=== PATIENT | female | born 1980 | race Two or more races ===

== ENCOUNTER 2017-06-11 12:37 | Day surgery (SDC) | payer OTHER ==
[~2017-06-11] VITALS: Ht 172.7 cm; Wt 65.8 kg
[2017-06-11] VITALS (9 sets, daily range): BP systolic 102–123; BP diastolic 56–86
[~2017-06-11 12:37] MED LIST: LR 1000ml 1,000 ML IVLG ONE
[2017-06-11] MEDS ORDERED: SYNTHROID50 MCG ORAL (13:01)
[2017-06-11] MEDS ORDERED: WP THYROID81.25 MG PO (13:03)
[2017-06-11] MEDS ORDERED: LR 1000ml 1,000 ML IVLG SCH (13:04)
--- NOTE | 2017-06-11 13:04 | Anethesia Preoperative Eval ---
Anesthesia Pre-op PMH/ROS General Date of Evaluation: Jun 11, 2017 Anesthesiologist: Nathan ASA Score: ASA 2 Mallampati Score Class I : Soft palate, uvula, fauces, pillars visible Class II: Soft palate, uvula, fauces visible Class III: Soft palate, base of uvula visible Class IV: Only hard plate visible Mallampati Classification: Class I Surgeon: Naila Diagnosis: Polyps Surgical Procedure: Colonoscopy Anesthesia History: none Family History: no anesthesia problems Allergies: Coded Allergies: HYDROMORPHONE (Verified Adverse Reaction, Severe, 06/11/17) SEVERE VOMITING Uncoded Allergies: cephalosporin (Allergy, Severe, 06/11/17) serum sickness Medications: see eMAR Past Medical History Cardiovascular: Denies: HTN, CAD, AL, valve dz, arrhythmia, other Pulmonary: Denies: asthma, COPD, PATRICIA, other Gastrointestinal/Genitourinary: Denies: GERD, CRI, ESRD, other Neurologic/Psychiatric: Denies: dementia, CVA, depression/anxiety, TIA, other Endocrine: Reports: hypothyroidism, Denies: DM, steroids, other HEENT: Denies: cataract (L), cataract (R), glaucoma, MILLE LACS (L), MILLE LACS (R), other Hematology/Immune: Denies: anemia, DVT, bleeding disorder, other Musculoskeletal/Integumentary: Denies: OA, RA, DJD, DDD, edema, other PSxH Narrative: Denies Anesthesia Pre-op Phys. Exam Physician Exam see chart Constitutional: NAD Cardiovascular: RRR Respiratory: CTA Airway Exam Mallampati Score: Class I MO: full ROM: full Teeth: intact Anesthesia Pre-op A/P Labs see chart Urine Test Test 06/11/17 12:20 Urine HCG, Qualitative Pending Risk Assessment & Plan Assessment: ASA II Plan: MAC Status Change Before Surgery: No Pre-Antibiotics Drug: N/A [address] M.D. Jun 11, 2017 13:04
--- NOTE | 2017-06-11 13:06 | Immediate Post-Op Evaluation ---
Immediate Post-Op Evalulation Immediate Post-Op Evalulation Procedure: Colonoscopy Date of Evaluation: Jun 11, 2017 Time of Evaluation: 16:32 IV Fluids: 1L Blood Products: 0 Estimated Blood Loss: min Urinary Output: 0 Blood Pressure Systolic: 102 Blood Pressure Diastolic: 56 Pulse Rate: 82 Respiratory Rate: 16 O2 Sat by Pulse Oximetry: 100 Temperature (Fahrenheit): 97.4 Pain Score (1-10): 0 Nausea: No Vomiting: No Complications 0 Patient Status: awake, reacts, patent, none Hydration Status: adequate Drug: N/A [address] M.D. Jun 11, 2017 13:06
[2017-06-11] MEDS ORDERED: DiphenhydrAMINE 50mg/ml Inj IVP PRN (13:15)
--- NOTE | 2017-06-11 15:22 | Pre-Procedure Note/Attestation ---
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 I attest that, if there was a reasonable possibility of needing a blood transfusion, the patient (or the patient's legal direct sales representative) was given the [facility] standardized written summary, pursuant to the [place]efty [place]de Blood Safety Act ([place] Health and Safety Code # 1645, as amended). I attest that I re-evaluated the patient just prior to the surgery and that there has been no change in the patient's H&P, except as documented below: Iain Yoo DO Jun 11, 2017 15:22
[2017-06-11] MEDS ORDERED: LR 1000ml ONE (15:30)
[2017-06-11] MEDS ORDERED: Propofol 1,000mg/ 100ml btl IV ONE (15:30)
[2017-06-11] MEDS ORDERED: Lidocaine 1% MPF 10mg/ml 5ml ONE (15:30)
--- NOTE | 2017-06-11 16:33 | 48 Hour Post Anesthesia Eval ---
Post Anesthesia Evaluation Procedure: Colonoscopy Date of Evaluation: Jun 11, 2017 Airway: patent Nausea: No Vomiting: No Pain Intensity: 0 Hydration Status: adequate Cardiopulmonary Status: 0 Mental Status/LOC: patient returned to baseline Post-Anesthesia Complications: 0 Follow-up care needed: ready to discharge [address] M.D. Jun 11, 2017 16:33
[2017-06-11] MEDS ORDERED: Artificial Tears 1.4% Op Soln BOTH EYES ONE (17:00)
--- NOTE | 2017-06-15 11:30 | Operative Note - Dictated ---
DATE OF OPERATION: 06/11/2017 SURGEON: Iain Yoo M.D. ANESTHESIOLOGIST: Dr. Evans. ANESTHESIA: MAC. 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 OPERATION PERFORMED: Colonoscopy to terminal ileum. OTHER PROCEDURES PERFORMED: None. INTRODUCTION: The patient presents for elected outpatient colonoscopy. INDICATIONS: Area of biopsy proven serrated adenoma in the hepatic flexure on last colonoscopy dated 03/19/2017. CONSENT: The patient was made aware of the potential risks of the procedure including, but not limited to bleeding, infection, perforation, and reaction to anesthetics. The patient was given the opportunity to ask questions. Informed consent was obtained. The patient elected to proceed. PREPARATION: EKG, pulse, pulse oximetry, and blood pressure were monitored throughout the procedure. The patient was kept NPO. Suprep bowel prep was used and the quality of the preparation was good with some residual fluid throughout. MEDICATIONS: The patient was medicated per the anesthesiologist present. TECHNIQUE: The adult Olympus colonoscope was passed into the anus under direct visualization to the terminal ileum. The cecum was identified by the ileocecal valve, appendiceal orifice, and cecal . The ileocecal valve was intubated and the terminal ileum was visualized. The mucosa of the terminal ileum appeared to be normal. The scope was then slowly withdrawn and the previous adenomatous polyp that was visualized on the previous colonoscopy was searched for in the hepatic flexure. There was an area of a flat polypoid appearing lesion in the hepatic flexure, which was noted. This was looked at under narrow band imaging. This was the area that appeared to be the prior area of biopsy at the hepatic flexure. The area was identified and a saline lift was performed to raise the polypoid abnormality. Next, snare cautery technique was used to excise the polypoid lesion. There was an area that was remnant above, which was then electrodesiccated and ablated with a snare portion tip. The entirety of the polyp appeared to be ablated. Next, the scope was slowly withdrawn and the remainder of the mucosa and remainder of the colon was evaluated. No other polyps were visualized in the transverse colon, splenic flexure, descending colon, sigmoid colon, or rectum. In the rectum, the scope was retroflexed and grade 2 internal hemorrhoids were noted. Rectal exam, no masses were palpated. FINDINGS: 1. Area of what appears to be a polypoid abnormality appearing type in the hepatic flexure was identified and removed with snare cautery polypectomy technique as well as ablation of the polyp with thermal energy. 2. Grade 2 internal hemorrhoids. none. SUMMARY: 1. Area of what appears to be a polypoid abnormality appearing type in the hepatic flexure was identified and removed with snare cautery polypectomy technique as well as ablation of the polyp with thermal energy. 2. Grade 2 internal hemorrhoids. 05:01 none. RECOMMENDATIONS: 1. The patient to be discharged home with an accompanied adult with standard parameters met including, but not limited to stable vital signs and ambulation. 2. The patient was advised to resume regular high-fiber diet. 3. The patient was advised to follow up in the office in one week to discuss the results of the colonoscopy and biopsy. 4. The patient was advised of the necessity to screen and to evaluate this polyp due to its dysplastic nature. Iain Yoo M.D DR: Briana JOB#: [id number] CC: FIDELIA
--- NOTE | 2017-06-17 13:16 | Brief Operative Note ---
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
== END 2017-06-11 14:37 | disposition home or self-care (01) ==
LOC: GAS 12:37
DX: D12.3 Benign neoplasm of transverse colon (principal); K64.1 Second degree hemorrhoids; K59.00 Constipation, unspecified; Z88.6 Allergy status to analgesic agent; E03.9 Hypothyroidism, unspecified
CPT/HCPCS: 45385; 81025; J2704; J7120; 94003; 94150